=== PATIENT | male | born 1960 | race Caucasian/White ===

== ENCOUNTER 2017-03-22 17:21 | Emergency (ER) | payer OTHER ==
[~2017-03-22] VITALS: Ht 180.3 cm; Wt 88.6 kg
[~2017-03-22 17:21] MED LIST: Coreg PO; Ecotrin PO; Effient PO; LIPITOR80 MG PO; Zestril,Prinivil PO
[2017-03-22] MEDS ORDERED: NORCO 5/3251 TABLET PO (20:36)
[2017-03-22 21:01] VITALS: BP 185/79
[2017-03-28] MEDS ORDERED: LO-DOSE ASPIRIN81 M1 PO (10:04)
[2017-03-28] MEDS ORDERED: COREG6.25 M1 PO (10:05)
[2017-03-28] MEDS ORDERED: PRAVACHOL40 MG PO (10:12)
== END 2017-03-22 21:02 | disposition home or self-care (01) ==
LOC: EME 17:21
DX: S76.119A Strain of unspecified quadriceps muscle, fascia and tendon, initial encounter (principal); S50.02XA Contusion of left elbow, initial encounter; W11.XXXA Fall on and from ladder, initial encounter; I10 Essential (primary) hypertension; I25.2 Old myocardial infarction; Z87.891 Personal history of nicotine dependence
CPT/HCPCS: 73564; 99281; 99283

== ENCOUNTER 2017-04-02 10:53 | Day surgery (SDC) | payer OTHER ==
[~2017-04-02] VITALS: Ht 180.3 cm; Wt 90.7 kg
[~2017-04-02 10:53] MED LIST changes: +COREG6.25 M1 PO; +LO-DOSE ASPIRIN81 M1 PO; +NORCO 5/3251 TABLET PO; +PRAVACHOL40 MG PO
[2017-04-02 11:37] VITALS: BP 129/66
[2017-04-02 16:05] VITALS: BP 175/77
[2017-04-02 17:14] VITALS: BP 180/79
== END 2017-04-02 17:15 | disposition home or self-care (01) ==
LOC: SDC 10:53
PROC: 0LQM0ZZ Repair Left Upper Leg Tendon, Open Approach (ICD-10-PCS; principal; 2017-04-02)
DX: S76.112A Strain of left quadriceps muscle, fascia and tendon, initial encounter (principal); X50.1XXA Overexertion from prolonged static or awkward postures, initial encounter; I10 Essential (primary) hypertension; I25.2 Old myocardial infarction; Z87.891 Personal history of nicotine dependence; Z79.82 Long term (current) use of aspirin
CPT/HCPCS: J0131; J0690; J1100; J1170; J1885; J2175; J2250; J2405; J2795; J3010